=== PATIENT | female | born 1975 | race Caucasian/White ===

== ENCOUNTER 2019-03-26 20:08 | Emergency (ER) | payer SELFPAY ==
[~2019-03-26] VITALS: Ht 154.9 cm; Wt 85.3 kg
[2019-03-26 20:55] VITALS: BP 102/63; Ht 154.9 cm; Wt 85.3 kg
== END 2019-03-27 00:31 | disposition left against medical advice (07) ==
LOC: ED 20:08
DX: Z53.21 Procedure and treatment not carried out due to patient leaving prior to being seen by health care provider (principal)